=== PATIENT | female | born 1975 | race American Indian/Alaskan Native ===

== ENCOUNTER 2018-05-29 07:40 | Emergency (ER) | payer MEDICAID ==
[2018-05-29 09:15] VITALS: BP 105/60
--- NOTE | 2018-05-29 09:48 | Emergency Department Report ---
ED Dizziness HPI - General Chief Complaint: Altered Mental Status Stated Complaint: ALTERED MENTAL STATUS Time Seen by Provider: 05/29/18 09:15 Source: patient, EMS Mode of arrival: Stretcher Limitations: Altered Mental Status - History of Present Illness Initial Comments: Patient is a 43-year-old female presents to emergency room with complaints of dizziness. Patient states the dizziness started approximately 3 hours ago. Patient states that she was drinking today. Patient states she had 1-3 drinks. Patient answering all questions properly. Patient denies chest pain shortness of breath. Patient denies headache and neck pain. Patient denies diaphoresis and fever and chills. Patient denies abdominal pain. Patient's only medical problem is cardiac arrhythmia and a pacemaker. Patient denies drug use. MD Complaint: dizziness, lightheadedness -: Sudden Timing: sudden onset Description: lightheadedness History of Same: No History of Trauma: No Severity: mild Improves With: rest Worsens With: position Associated Symptoms: denies: ataxia, chest pain, confusion, cough, diaphoresis, fever/chills, loss of appetite, malaise, rash, seizure, shortness of breath, syncope, weakness - Related Data Allergies Allergy/AdvReac Type Severity Reaction Status Date / Time Penicillins Allergy Rash Verified 05/29/18 09:11 ED Review of Systems ROS: Stated complaint: ALTERED MENTAL STATUS Other details as noted in HPI Constitutional: denies: chills, fever Eyes: denies: eye pain, eye discharge, vision change ENT: denies: ear pain, throat pain Respiratory: denies: cough, shortness of breath, wheezing Cardiovascular: denies: chest pain, palpitations Endocrine: no symptoms reported Gastrointestinal: denies: abdominal pain, nausea, diarrhea Genitourinary: denies: urgency, dysuria, discharge Musculoskeletal: denies: back pain, joint swelling, arthralgia Skin: denies: rash, lesions Neurological: denies: headache, weakness, paresthesias Psychiatric: denies: anxiety, depression Hematological/Lymphatic: denies: easy bleeding, easy bruising ED Past Medical Hx - Past Medical History Previous Medical History?: Yes - Surgical History Past Surgical History?: Yes Hx Pacemaker: Yes Additional Surgical History: R thumb amptutated d/t brown recluse spider bite - Family History Family history: no significant - Social History Smoking Status: Current Some Day Smoker Substance Use Type: Alcohol ED Physical Exam - General Limitations: Altered Mental Status General appearance: alert, in no apparent distress - Head Head exam: Present: atraumatic, normocephalic - Eye Eye exam: Present: normal appearance - ENT ENT exam: Present: mucous membranes moist - Neck Neck exam: Present: normal inspection - Respiratory Respiratory exam: Present: normal lung sounds bilaterally. Absent: respiratory distress - Cardiovascular Cardiovascular Exam: Present: regular rate, normal rhythm. Absent: systolic murmur, diastolic murmur, rubs, gallop - GI/Abdominal GI/Abdominal exam: Present: soft, normal bowel sounds - Extremities Exam Extremities exam: Present: normal inspection - Back Exam Back exam: Present: normal inspection - Neurological Exam Neurological exam: Present: alert, oriented X3, CN II-XII intact, normal gait, reflexes normal - Expanded Neurological Exam Expanded Speech: Present: fluid speech Cranial nerves: EOM's Intact: Normal, Tongue Deviation: Normal, Nystagmus: Normal, Facial Sensation: Normal Cerebellar function: Finger to Nose: Normal, Heel to [place]: Normal, Romberg: Normal Upper motor neuron: Babinski Sign: Normal Best Eye Response (Krys): (4) open spontaneously Best Motor Response (Krys): (6) obeys commands Best Verbal Response (Krys): (5) oriented Krys Total: 15 - Psychiatric Psychiatric exam: Present: normal affect, normal mood - Skin Skin exam: Present: warm, dry, intact, normal color. Absent: rash ED Course Vital Signs 05/29/18 09:14 Pulse Rate 60 Respiratory 16 Rate Blood Pressure 105/60 [Right] O2 Sat by Pulse 100 Oximetry - Reevaluation(s) Reevaluation #1: Patient states symptoms have resolved. Patient is ambulatory. Patient went to the restroom without difficulties. We'll recheck the patient's BMP. Patient is A&O 4 05/29/18 13:14 Reevaluation #2: Patient tolerated by mouth intake. Patient's chemistry has improved. Dizziness has resolved. Patient will be discharged home with discharge instructions and strict return to ER instructions. 05/29/18 14:18 Patient still symptom free. Patient tolerating ambulating and by mouth intake. Patient is stable for discharge. Patient will be discharged home and instructed to follow-up with her primary care in 23 days. 05/29/18 14:30 ED Medical Decision Making - Lab Data Result diagrams: 05/29/18 09:54 05/29/18 13:38 - EKG Data -: EKG Interpreted by Me EKG shows normal: sinus rhythm, axis, intervals, QRS complexes, ST-T waves - EKG Data Interpretation: other (a paced, paced complexes noted. PVC noted) - Medical Decision Making 43-year-old female presents to emergency room with dizziness. Dizziness was likely secondary to dehydration and alcohol intake. He was given a banana bag fluids and responded well to therapy. All symptoms have resolved in ER. Patient tolerated by mouth intake. Patient stable for discharge. Patient will be discharged home. Patient's chemistry improved with treatment. Patient's creatinine back to normal. Patient instructed to increase water intake. - Differential Diagnosis dizziness. Dehydration. Alcohol use. Electrolyte imbalance./ Critical care attestation.: If time is entered above; I have spent that time in minutes in the direct care of this critically ill patient, excluding procedure time. ED Disposition Clinical Impression: Dizziness, Dehydration, Acute renal insufficiency Disposition: DC-01 TO HOME OR SELFCARE Is pt being admited?: No Does the pt Need Aspirin: No Condition: Stable Instructions: Dehydration (ED), Lightheadedness (ED), Dizziness (ED) Additional Instructions: Patient follow up with primary care and 2-3 days. Patient to return to ER if condition worsens. Patient to increase water. Patient to rest. Patient does not drive so cleared by primary care. Patient to avoid alcohol and drugs. Referrals: PRIMARY CARE, [Primary Care Provider] - 2-3 Days Time of Disposition: 14:31
[2018-05-29 10:23] LABS: Basophils % (Auto) 0.7 % (0.0-1.8); Eosinophils % (Auto) 0.2 % (0.0-4.3); Hematocrit 37.5 % (30.3-42.9); Hemoglobin 12.3 gm/dl (10.1-14.3); Mean Corpuscular HGB Conc 33 % (30-34); Mean Corpuscular Hemoglobin 29 pg (28-32); Mean Corpuscular Volume 89 fl (79-97); Monocytes # (Auto) 0.4 K/mm3 (0.0-0.8); Monocytes % (Auto) 6.3 % (0.0-7.3); Platelet Count 449 K/mm3 (140-440); Red Blood Count 4.23 M/mm3 (3.65-5.03); Red Cell Distribution Width 15.7 % (13.2-15.2)
[2018-05-29 10:30] LABS: Calcium 9.6 mg/dL (8.4-10.2)
[2018-05-29] MEDS ORDERED: VITAMIN B-1 100 MG, FOLVITE 1 MG, INFUVITE 10 ML in NACL 0.9% 1000 ML 1,000 ML IV ONE (11:00)
[2018-05-29] MEDS ORDERED: NACL 0.9% 1000 ML 1,000 ML IV ONE (13:15)
[2018-05-29 14:03] LABS: BUN/Creatinine Ratio 28; Blood Urea Nitrogen 28 mg/dL (7-17); Hemolysis Index 0
== END 2018-05-29 16:03 | disposition home or self-care (01) ==
LOC: ED 07:40
DX: E86.0 Dehydration (principal); N28.9 Disorder of kidney and ureter, unspecified; F17.200 Nicotine dependence, unspecified, uncomplicated; Z95.0 Presence of cardiac pacemaker
CPT/HCPCS: 36415; 80048; 80053; 82962; 84443; 84703; 85025; 93005; 93010; 96361; 96365; 99284; G0480; J3411; J7030; 80320